=== PATIENT | male | born 1955 | race Caucasian/White ===

== ENCOUNTER 2018-07-25 07:53 | Day surgery (SDC) ==
[2016-04-15 08:05] VITALS: BMI 27.1
[2018-07-25] MEDS ORDERED: LIDOCAINE 1% 20 ML MDV ID STA (08:54)
[2018-07-25] MEDS ORDERED: DIPRIVAN 20 ML VIAL IVP ONE (09:10)
[2018-07-25] MEDS ORDERED: VERSED ONE (09:10)
[2018-07-25 15:31] VITALS: BP 132/66
--- NOTE | 2018-07-26 08:27 | OP ---
PROCEDURE: COLONOSCOPY TO THE CECUM WITH SNARE POLYPECTOMY. ENDOSCOPIST: Madhav CHAPIN M.D. INDICATION: HISTORY OF POLYPS INSTRUMENT: [id number]. MEDICATION: PER ANESTHESIA. PROCEDURE: The patient was positioned for colonoscopy. The digital rectal exam was negative. The colonoscope was inserted through the anus and advanced to the cecum. The cecum was identified using the ileocecal valve and the appendiceal orifice as landmarks. The scope was slowly withdrawn through an adequately prepped colon. [place] Bowel Prep Score equals 9. Small polyp at 80cm removed using snare cautery. This would be vicinity of the approximal transfer colon. Diverticulosis in the left colon. Retroflex exam was otherwise normal. The patient tolerated the procedure without immediate complication. Withdraw time 12 minutes and 10 seconds. PLAN: 1. Suggest repeat colonoscopy for surveillance in 5 years. CC: Dr. Adeola DOTSON
== END 2018-07-25 10:30 | disposition home or self-care (01) ==
LOC: SURG 07:53
PROVIDERS: ATTEND Internal Medicine Gastroenterology
DX: Z86.010 Personal history of colon polyps (principal); K63.5 Polyp of colon; D12.4 Benign neoplasm of descending colon